=== PATIENT | female | born 1995 | race Caucasian/White ===

== ENCOUNTER 2016-05-06 21:02 | Emergency (ER) | payer MEDICAID ==
[2016-05-06] MEDS ORDERED: ACETAMIN/BUTALB/CAFF ONE (21:42)
== END 2016-05-06 22:16 | disposition home or self-care (01) ==
LOC: FASTR 21:02
DX: R51 Headache (principal); J01.10 Acute frontal sinusitis, unspecified; F17.210 Nicotine dependence, cigarettes, uncomplicated
CPT/HCPCS: 87804; 87880